=== PATIENT | male | born 1975 | race Caucasian/White ===

== ENCOUNTER 2018-09-30 11:58 | Emergency (ER) | payer OTHER ==
[~2018-09-30] VITALS: Ht 175.3 cm; Wt 103.6 kg
[2018-09-30 12:12] VITALS: BP 161/83
[2018-09-30 12:46] VITALS: BP 161/83
== END 2018-09-30 12:45 | disposition home or self-care (01) ==
LOC: MED 11:58
DX: K08.89 Other specified disorders of teeth and supporting structures (principal)
CPT/HCPCS: 99283